=== PATIENT | female | born 1990 | race Caucasian/White ===

== ENCOUNTER → 2020-04-18 10:58 | Outpatient (CLI) | payer OTHER, SELFPAY ==
--- NOTE | 2020-04-18 11:04 | DI.US.S_ITS ---
PROCEDURE: US OB LIMITED INDICATIONS: Limited evaluation, specifically for MATTIE only. OUTSIDE/PRIOR DATING DATA: Last menstrual period (LMP): Not available. LMP-based estimated date of delivery (SHAHID): Not available . First dating scan (date and location): Not available . Estimated date of delivery (SHAHID) from first dating scan: Not available . TECHNIQUE: Real-time scanning was performed of the fetus, with image documentation. Endovaginal scanning: Not COMPARISON: None. FINDINGS: A single living intrauterine gestation is present. Presentation: Vertex Placenta: Placental position is anterior, without previa. Amniotic fluid index: 9.4 cm, normal range is 5-24 cm. heart rate: 131 beats per minute. Maternal cervical canal: 3.2 cm long. Normal lower limit is 2.5 cm. Report any funneling of internal cervical os: % of canal length, shape (U or V), width or any U-shaped funneling. Estimated gestational age from initial scan: Not available . IMPRESSION: Vertex presentation, anterior placenta, normal amniotic fluid index of 9.4 cm with normal maternal cervical length and also heart rate 131 beats per minute. Dictated by: Brad Rodriguez M.D. on 04/18/2020 at 16:21 Approved by: Brad Rodriguez M.D. on 04/18/2020 at 16:23
== END ==
PROVIDERS: PCP Nurse Practitioner Obstetrics & Gynecology; Referring Provider Nurse Practitioner Obstetrics & Gynecology; Visit Provider Nurse Practitioner Obstetrics & Gynecology
DX: Z36.89 Encounter for other specified antenatal screening (principal)
CPT/HCPCS: 76815

== ENCOUNTER → 2021-02-10 10:14 | Outpatient (CLI) | payer OTHER, SELFPAY ==
--- NOTE | 2021-02-10 10:17 | DI.RAD.S_ITS ---
PROCEDURE: XR LUMBAR SPINE 2-3V INDICATIONS: bump/raised area, nontender TECHNIQUE: 3 views of the lumbar spine were acquired. COMPARISON: X-ray thoracic spine 02/10/2021 FINDINGS: Bones: 5 [id number] vertebrae are present. There is normal bony alignment. No vertebral body compression fractures. No suspicious bony lesions. Soft tissues: Overlying bowel gas pattern is normal. No suspicious soft tissue calcifications. IMPRESSION: No acute osseous process. If concern persists for soft tissue abnormality, focal ultrasound is recommended. Dictated by: Valorie Alcala M.D. on 02/10/2021 at 15:08 Approved by: Valorie Alcala M.D. on 02/10/2021 at 15:09
--- NOTE | 2021-02-10 10:17 | DI.RAD.S_ITS ---
PROCEDURE: XR THORACIC SPINE 3V INDICATIONS: bump/raised area, nontender TECHNIQUE: 3 views of the thoracic spine were acquired. COMPARISON: X-ray lumbar spine 02/02/2021 FINDINGS: Bones: No fractures or dislocations. No suspicious bony lesions. 12 pairs of ribs are noted, and appear intact where visualized. Soft tissues: No paravertebral stripe thickening. IMPRESSION: No acute osseous abnormality. If soft tissue remains of concern, focal ultrasound is recommended. Dictated by: Valorie Alcala M.D. on 02/10/2021 at 15:09 Approved by: Valorie Alcala M.D. on 02/10/2021 at 15:09
[2021-02-10 11:10] LABS: Add Manual Diff / Slide Review NO; Basophils Absolute Auto 0 /uL (0-100); Basophils Percent Auto 0.5 % (0-2); Eosinophils Absolute Auto 0 /uL (0-450); Eosinophils Percent Auto 0.7 % (2-4); Hematocrit 40.3 % (36-46); Hemoglobin 13.9 g/dL (12.0-16.0); Lymphocytes Absolute Auto 1500 /uL (1100-4500); Lymphocytes Percent Auto 29.4 % (25-40); Mean Corpuscular HGB Conc 34.5 % (30-36); Mean Corpuscular Hemoglobin 33.6 PG (26-34); Mean Corpuscular Volume 97.4 fL (80-100); Monocytes Absolute Auto 200 /uL (0-900); Monocytes Percent Auto 4.8 % (3-14); Neutrophils Absolute Auto 3200 /uL (1500-7000); Neutrophils Percent Auto 64.6 % (50-75); Platelet Count 230 X10^3/uL (150-400); Red Blood Cell Count 4.14 X10^6/uL (4.0-5.2)
[2021-02-10 11:54] LABS: Alanine Aminotransferase 13 IU/L (<35); Albumin 4.6 g/dL (3.5-5.0); Albumin Globulin Ratio 1.8 (1.0-2.8); Alkaline Phosphatase 64 U/L (38-126); Aspartate Aminotransferase 23 IU/L (14-36); BUN Creatinine Ratio 20.9 (6-22); Bilirubin Total 0.4 mg/dL (0.2-1.3); Blood Urea Nitrogen 14 mg/dL (7-17); Calcium 9.9 mg/dL (8.4-10.2); Carbon Dioxide 26 mmol/L (22-32); Chloride 108 mmol/L (98-107); Estimated Glomerular Filt Rate > 60.0 mL/min (>60); Globulin 2.6 g/dL (1.7-4.1); Glucose 88 mg/dL (70-100); HEMOLYSIS < 15 (0-50); Potassium 4.6 mmol/L (3.4-5.1); Sodium 141 mmol/L (137-145); Total Protein 7.2 g/dL (6.3-8.2)
== END ==
PROVIDERS: PCP Registered Nurse; Referring Provider Registered Nurse; Visit Provider Registered Nurse
DX: Z00.00 Encounter for general adult medical examination without abnormal findings (principal); Q76.49 Other congenital malformations of spine, not associated with scoliosis; R32 Unspecified urinary incontinence
CPT/HCPCS: 36415; 72072; 72100; 80053; 85025

== ENCOUNTER → 2021-03-11 16:06 | Outpatient (CLI) | payer OTHER, SELFPAY ==
--- NOTE | 2021-03-11 16:07 | DI.MRI.S_ITS ---
PROCEDURE: MR THORACIC SPINE WO/W CON INDICATIONS: further eval. of palpable mass TECHNIQUE: Noncontrast sagittal T1 spin echo and T2 fast spin echo, sagittal STIR, axial T1 and T2 fast spin echo through the thoracic spine. After the administration of contrast, axial and sagittal T1 spin echo with fat saturation through the thoracic spine. COMPARISON: [facility], [place], XR THORACIC SPINE 3V, 02/10/2021, 10:36. FINDINGS: Image quality: Excellent. Alignment and curvature: There is normal bony alignment. Marrow: Marrow is of normal overall signal. No acute vertebral body compression fractures. Spinal cord: Visualized spinal cord is of normal signal and size, without abnormal enhancement. Paraspinous soft tissues: No paravertebral masses or abnormal enhancement deep to localizer marker in the right flank at the level of the right 12th rib and right kidney. Miscellaneous: Central canal and foramina appear widely patent at all scanned levels. IMPRESSION: 1. No abnormal mass, soft tissue edema, fluid collections or suspicious postcontrast enhancement identified in the region of clinical interest. Akanksha F2. Normal thoracic spine. Dictated by: Fartun Hernandez MD, PhD on 03/12/2021 at 9:49 Approved by: Fartun Hernandez MD, PhD on 03/12/2021 at 9:54
== END ==
PROVIDERS: PCP Registered Nurse; Referring Provider Registered Nurse; Visit Provider Registered Nurse
DX: Q76.49 Other congenital malformations of spine, not associated with scoliosis (principal)
CPT/HCPCS: 72157

== ENCOUNTER → 2021-04-30 09:14 | Outpatient (CLI) | payer OTHER, SELFPAY ==
[2021-04-30 10:14] LABS: Appearance Urine UA CLEAR; Bilirubin Urine UA NEGATIVE (NEGATIVE); Color Urine UA YELLOW; Glucose Urine UA NEGATIVE (Negative); Ketones Urine UA NEGATIVE (NEGATIVE); Leukocyte Esterase Urine UA NEGATIVE (NEGATIVE); Nitrite Urine UA NEGATIVE (Negative); Occult Blood Urine UA NEGATIVE (Negative); Protein Urine UA NEGATIVE (Negative); Urobilinogen Urine UA 0.2 E.U./dL (0.2)
[2021-04-30 10:17] LABS: pH Urine UA 5.5 (4.5-8.0)
[2021-04-30 10:37] LABS: Add Manual Diff / Slide Review NO; Basophils Absolute Auto 0 /uL (0-100); Basophils Percent Auto 0.4 % (0-2); Eosinophils Absolute Auto 0 /uL (0-450); Eosinophils Percent Auto 0.3 % (2-4); Hematocrit 38.3 % (36-46); Hemoglobin 13.4 g/dL (12.0-16.0); Lymphocytes Absolute Auto 1100 /uL (1100-4500); Lymphocytes Percent Auto 18.5 % (25-40); Mean Corpuscular HGB Conc 35.1 % (30-36); Mean Corpuscular Hemoglobin 34.2 PG (26-34); Mean Corpuscular Volume 97.3 fL (80-100); Monocytes Absolute Auto 300 /uL (0-900); Monocytes Percent Auto 4.5 % (3-14); Neutrophils Absolute Auto 4500 /uL (1500-7000); Neutrophils Percent Auto 76.3 % (50-75); Platelet Count 216 X10^3/uL (150-400); Red Blood Cell Count 3.93 X10^6/uL (4.0-5.2); Red Cell Distribution Width 11.7 % (11.6-14.8); White Blood Cell Count 5.9 X10^3/uL (4.5-11.0)
[2021-05-01 06:38] LABS: Varicella IgG Antibody 707 index (Immune >165)
[2021-05-01 12:00] LABS: RPR Screen Non Reactive (Non Reactive)
[2021-05-01 17:30] LABS: Hepatitis B Surface Antigen NEGATIVE s/c (NEGATIVE); Rubella Antibody IgG 9.2 IU/mL (>15)
[2021-05-01 17:47] LABS: HIV 1 & 2 Ab/Ag 4th Gen Combo NEGATIVE (NEGATIVE); Hep C Virus Ab w/Reflex Quant NEGATIVE s/c (NEGATIVE)
== END ==
PROVIDERS: PCP Registered Nurse; Referring Provider Specialist; Visit Provider Specialist
DX: Z34.81 Encounter for supervision of other normal pregnancy, first trimester (principal)
CPT/HCPCS: 36415; 80055; 81003; 86787; 86803; 86850; 86900; 86901; 87086; 87389

== ENCOUNTER → 2021-05-28 17:04 | Outpatient (CLI) | payer OTHER, SELFPAY | PROVIDERS: PCP Registered Nurse; Referring Provider Specialist; Visit Provider Specialist | DX: Z13.79 Encounter for other screening for genetic and chromosomal anomalies (principal) | CPT/HCPCS: 84163 ==

== ENCOUNTER → 2021-07-02 16:05 | Outpatient (CLI) | payer OTHER, SELFPAY ==
[2021-07-04 20:09] LABS: AFP Value 47.2 ng/mL (.); Gest Age on Col Date 16.1 weeks (.); Gestational Age Ultrasound (.); Insulin Dep Diabetes No (.); OSBR Risk 1IN 4664 (.); Results Report (.); Test Results *Screen Negative* (.)
[2021-07-21 09:53] LABS: Miscellaneous to LabCorp NEGATIVE
== END ==
PROVIDERS: PCP Registered Nurse; Referring Provider Specialist; Visit Provider Specialist
DX: Z34.82 Encounter for supervision of other normal pregnancy, second trimester (principal); Z3A.16 16 weeks gestation of pregnancy
CPT/HCPCS: 36415; 82105; 82677; 84702; 86336

== ENCOUNTER → 2021-07-29 15:14 | Outpatient (CLI) | payer OTHER, SELFPAY ==
--- NOTE | 2021-07-29 15:15 | DI.US.S_ITS ---
PROCEDURE: US OB >= 14 WEEKS FETUS INDICATIONS: 20 WEEK ANATOMY OUTSIDE/PRIOR DATING DATA: Last menstrual period (LMP): 03/04/2021 LMP-based estimated date of delivery (SHAHID): 12/09/2021. First dating scan (date and location): 04/30/2021. Estimated date of delivery (SHAHID) from first dating scan: 12/16/2021. The calculations are made using the ultrasound SHAHID of 12/16/2021. TECHNIQUE: Real-time scanning was performed of the fetus, with image documentation and biometric measurements. Endovaginal scanning: No COMPARISON: [facility], [place], US OB <= 14 WEEKS FETUS, 04/30/2021, 8:57. FINDINGS: General: A single living intrauterine gestation is present. Presentation: Breech. Placenta: Placental position is anterior , without previa. Amniotic fluid index: 11.2 cm, normal range is 5-24 cm. heart rate: 143 beats per minute. Maternal cervical canal: 4.4 cm long. Normal lower limit is 2.5 cm. biometrics: Biparietal diameter: 19 weeks 2 days Head circumference: 19 weeks 4 days Abdominal circumference: 20 weeks 3 days Femur length: 20 weeks 3 days Clinically estimated gestational age: 20 weeks 0 days Composite gestational age from present scan: 19 weeks 6 days Estimated weight and percentile: 343 g; 61st percentile Anatomic survey: Neuro: Ventricles are non-dilated at less than 10 mm. Cisterna magna is normal at 3-11 mm. Cerebellum is normal in size and morphology. Nuchal skin fold: Normal at less than 6 mm between 14-21 weeks gestational age. Face: Nose and lips, facial profile are normal. Spine: No evidence for spina bifida. Heart: 4-chambered heart is present, with normal ventricular outflow tracts. Diaphragm: Diaphragm is intact. Stomach: Left-sided stomach is present. Kidneys: No hydronephrosis. Normal is less than 5 mm in 2nd trimester, less than 7 mm in 3rd trimester. Cord: 3-vessel cord has orthotopic insertion. Bladder: Normal in size. Extremities: All 4 extremities identified. IMPRESSION: 1. Single living IUP redemonstrated and interval growth is normal. 2. Normal anatomic survey. We strive to produce accurate, complete, and clear reports of imaging services. To assist us in improving patient care, this report was composed using standard report templates and voice recognition software. Therefore, it may contain abnormal punctuation, insertions and/or omissions. Occasional wrong-word or sound-alike substitutions may occur. Though we review the report and make efforts to correct it, we do recommend that the report be read carefully in proper context to recognize any text inaccuracies. Dictated by: Anirudh ROBERTS Interpreted: Van Mariano MD on 07/29/2021 at 16:34 Transcribed by: KI on 07/29/2021 at 16:35 Approved by: Van Mariano M.D. on 07/29/2021 at 17:04
== END ==
PROVIDERS: PCP Registered Nurse; Referring Provider Specialist; Visit Provider Specialist
DX: Z34.82 Encounter for supervision of other normal pregnancy, second trimester (principal); Z3A.19 19 weeks gestation of pregnancy
CPT/HCPCS: 76811

== ENCOUNTER → 2021-09-09 09:14 | Outpatient (CLI) | payer OTHER, SELFPAY ==
[2021-09-09 11:43] LABS: Hematocrit 33.9 % (36-46)
[2021-09-09 12:27] LABS: GTT (PREG) 1 Hour PP 50gm Dose 81 mg/dL (76-139)
== END ==
PROVIDERS: PCP Registered Nurse; Referring Provider Specialist; Visit Provider Specialist
DX: Z34.82 Encounter for supervision of other normal pregnancy, second trimester (principal)
CPT/HCPCS: 36415; 82950; 85014; 85018